=== PATIENT | male | born 2000 | race Caucasian/White ===

== ENCOUNTER 2022-12-27 10:33 | Emergency (ER) | payer BC, SELFPAY ==
--- NOTE | ~2022-12-27 | XR_ITS ---
EXAMINATION: XR foot RT min 3V DATE: 12/27/2022 11:25 INDICATION: Right ankle injury. Right foot pain. TECHNIQUE: 4 views of right foot were obtained. COMPARISON: None. FINDINGS: Bone alignment is normal. No fracture. Joint spaces are well maintained. IMPRESSION: 1. Normal right foot. Reviewed, dictated and finalized at location A. IMPRESSION: 1. Normal right foot.
--- NOTE | ~2022-12-27 | XR_ITS ---
EXAMINATION: XR ankle RT min 3V DATE: 12/27/2022 11:25 INDICATION: Right ankle injury and pain. TECHNIQUE: 4 views of right ankle were obtained. COMPARISON: Left tibia and fibula radiographs 01/07/2016 FINDINGS: Bone alignment is normal. There is an old healed fracture of fibular diaphysis. No acute fr acture. Joint spaces are normal. IMPRESSION: 1. No acute fracture. Reviewed, dictated and finalized at location A. IMPRESSION: 1. No acute fracture.
[2022-12-27 10:49] VITALS: BP 107/61; PULSE 72; RESP 16; TEMP 36.9; O2SAT 100
--- NOTE | 2022-12-27 11:16 | PC.NURSE ---
Patient off unit to radiology.
--- NOTE | 2022-12-27 12:14 | ED.LOWEXIN ---
HPI - Extremity Injury (Lower) General Chief Complaint: Extremity Injury, Lower Stated Complaint: right foot injury Time Seen by Provider: 12/27/22 10:56 Source: patient Mode of arrival: ambulatory Limitations: no limitations History of Present Illness HPI Narrative: Patient is a 22 y/o male who presents to the ED with his mother with report of R ankle and foot pain. Patient reports he was playing basketball last night when he went up for a lay up and came down and rolled his right ankle. Patient complains of pain to his right lateral ankle and right lateral mid foot. He has been able to ambulate, but has some pain with this. He has not taken anything for the pain. Denies any numbness or tingling. Related Data Home Medications Medication Instructions Recorded Confirmed No Home Medications 12/27/22 Allergies Allergy/AdvReac Type Severity Reaction Status Date / Time No Known Allergies Allergy Unverified 12/27/22 10:51 Review of Systems Review of Systems: CONSTITUTIONAL: Denies fever, chills, or sweats. MUSCULOSKELETAL: See HPI. NEUROLOGIC: Denies tingling, numbness, or weakness. All systems reviewed & are unremarkable except as noted in HPI and below PMFSH Past Medical History Medical History Fracture of olecranon process of right ulna [address] Bishop Tetralogy of Fallot [address] Yeager Toe fracture, left Social History Social History Smoking status: Never smoker Alcohol intake: current Alcohol use details: 4 drinks per month Gender identity (if verbalized by the patient): Male Exam Narrative: GENERAL: Well appearing, thin, non-toxic, in no acute distress. HEAD: Normocephalic, atraumatic. NECK: Supple. No adenopathy, no masses. RESPIRATORY: Airway patent, respirations nonlabored. CARDIOVASCULAR: Regular rate and rhythm without murmurs, rubs, or gallops. Pedal pulses 2+ and equal bilaterally. MUSCULOSKELETAL: Moves all extremities. Strength/ROM intact without gross deformities. Mild swelling noted to anterior lateral right ankle, in distribution of ATFL ligament. No significant tenderness to palpation over medial or lateral malleoli. No significant tenderness over fifth metatarsal. No ecchymosis. Sensation intact. SKIN: Warm, dry, normal color. No rashes. NEURO: A&O X3. Speech clear. Cranial nerves II-XII grossly intact. Steady gait. No ataxic movements. PSYCHIATRIC: Appropriate mood and affect. Normal interaction. Course Vital Signs Vital signs: Vital Signs Temperature 98.5 F 12/27/22 10:49 Pulse Rate 72 12/27/22 10:49 Respiratory Rate 16 12/27/22 10:49 Blood Pressure 107/61 12/27/22 10:49 Pulse Oximetry 100 12/27/22 10:49 Oxygen Delivery Room Air 12/27/22 10:49 Temperature 98.5 F 12/27/22 10:49 Pulse Rate 72 12/27/22 10:49 Respiratory Rate 16 12/27/22 10:49 Blood Pressure 107/61 12/27/22 10:49 Pulse Oximetry 100 12/27/22 10:49 Oxygen Delivery Room Air 12/27/22 10:49 MDM - Extremity Injury (Lower) MDM Narrative Medical decision making narrative: Patient's injury is consistent with musculoskeletal etiology. No gross deformities. No signs of neurologic or vascular compromise on physical examination. Compartments are soft without signs of compartment syndrome. XR of right ankle and foot without signs of fracture or dislocation. Pain is consistent with ankle sprain. Patient is felt to be stable for discharge home and further outpatient management and treatment. Will be provided with Rajesh bandage for support. Advised patient to take Tylenol and ibuprofen, follow-up with orthopedics if needed. Patient has seen Dr. Stein in the past and would like to follow-up with him. Return precautions given. Medical Records Attestation: I reviewed the patient's medical records. Imaging Data Attestation: I pers
[2022-12-27] MEDS: IBUPROFEN 600 MG TABLET PO (12:16)
== END 2022-12-27 12:34 | disposition home or self-care (01) ==
PROVIDERS: Emergency Provider Physician Assistant; PCP Family Medicine Sports Medicine
DX: S93.401A Sprain of unspecified ligament of right ankle, initial encounter (principal); X50.0XXA Overexertion from strenuous movement or load, initial encounter; Y93.67 Activity, basketball
CPT/HCPCS: 73610; 73630; 99283; A9270

== ENCOUNTER 2023-12-02 20:58 | Emergency (ER) | payer BC, SELFPAY ==
--- NOTE | ~2023-12-02 | XR_ITS ---
EXAMINATION: XR foot RT min 3V DATE: 12/02/2023 21:14 INDICATION: Right foot injury and pain. TECHNIQUE: 3 views of right foot were obtained. COMPARISON: Right foot radiographs 12/27/2022 FINDINGS: Bone alignment is normal. No acute fracture. Again seen is a chip of bone at the lateral as pect of distal cuboid. Joint spaces are normal. IMPRESSION: 1. No acute fracture. Reviewed, dictated and finalized at location E. IMPRESSION: 1. No acute fracture.
[2023-12-02 21:01] VITALS: BP 149/83; PULSE 99; RESP 16; TEMP 36.6; O2SAT 100
--- NOTE | 2023-12-02 21:07 | ED.LOWEXIN ---
HPI - Extremity Injury (Lower) General Chief Complaint: Extremity Injury, Lower Stated Complaint: running in the rain Time Seen by Provider: 12/02/23 21:04 Source: patient Mode of arrival: wheelchair Limitations: no limitations History of Present Illness HPI Narrative: 23-year-old with a history of osteogenesis imperfecta ahead with a complaint of a right foot pain. Patient states that he fell while running . In MD complaint: foot injury Onset (ago): minute(s) (30) Type of Injury: unknown Place: street/outdoors Severity: moderate Relieving factors: nothing Exacerbating factors: weight bearing and movement Context: running Other symptoms: none Related Data Home Medications Medication Instructions Recorded Confirmed No Home Medications 12/27/22 Allergies Allergy/AdvReac Type Severity Reaction Status Date / Time No Known Allergies Allergy Unverified 12/02/23 21:05 Review of Systems Review of Systems: All systems reviewed & are unremarkable except as noted in HPI and below Constitutional: Constitutional: Reports no additional constitutional complaints Eyes: Eyes: Reports no additional eye complaints ENT: Reports system reviewed and no additional complaints, except as documented Cardiovascular: Cardiovascular: Reports no additional cardiovascular complaints Respiratory: Respiratory: Reports no additional respiratory complaints Gastrointestinal: Gastrointestinal: Reports no additional gastrointestinal complaints Musculoskeletal: Musculoskeletal: Reports as per HPI Neurologic: Reports system reviewed and no additional complaints, except as documented PMFSH Past Medical History Medical History Fracture of olecranon process of right ulna [address] Bishop Tetralogy of Fallot [address] Yeager Toe fracture, left Social History Social History Smoking status: Never smoker Alcohol intake: current Alcohol use details: 4 drinks per month Gender identity (if verbalized by the patient): Male Exam Narrative: GENERAL: Well-appearing, well-nourished, and in no acute distress. HEAD: Normocephalic, atraumatic. EYES: PERRLA and EOMI. ENT: Nares clear, no rhinorrhea or epistaxis. Mucous membranes moist. NECK: Supple. CHEST: Clear to auscultation. No respiratory distress. HEART: Regular rate and rhythm. No murmur heard. Normal peripheral pulses. EXTREMITIES: Normal range of motion. No edema. Examination of the right foot shows no obvious deformity SKIN: Warm, dry, no rash. NEURO: No focal deficits. Alert and oriented x3. PSYCH: Normal mood and affect. Course Course Emergency Course: Notified patient a mild headache findings. Advised him to use crutches for ambulation, take pain medication as prescribed Vital Signs Vital signs: Vital Signs Temperature 36.6 C 12/02/23 21:01 Pulse Rate 99 12/02/23 21:01 Respiratory Rate 16 12/02/23 21:01 Blood Pressure 149/83 H 12/02/23 21:01 Pulse Oximetry 100 12/02/23 21:01 Oxygen Delivery Room Air 12/02/23 21:01 Temperature 36.6 C 12/02/23 21:01 Pulse Rate 99 12/02/23 21:01 Respiratory Rate 16 12/02/23 21:01 Blood Pressure 149/83 H 12/02/23 21:01 Pulse Oximetry 100 12/02/23 21:01 Oxygen Delivery Room Air 12/02/23 21:01 MDM - Extremity Injury (Lower) Imaging Data Radiologist's impression: ITS Impressions Foot X-Ray 12/02/23 21:14 IMPRESSION: 1. No acute fracture. Discharge Plan Discharge Clinical Impression: Foot sprain Patient Disposition: Home, Self-Care Condition: Stable Instructions: Antibiotic Form Prescriptions: No Action No Home Medications Follow-up/Referrals: Allyson,Neftaly Calderón MD [Primary Care Provider] - Time of Disposition: 21:25
[2023-12-02] MEDS: HYDROcodone/acetaminophen (*CRX) 5-325 MG TABLET 1 TAB PO (21:33)
[2023-12-02 21:37] VITALS: BP 142/92; PULSE 91; RESP 15; O2SAT 100
== END 2023-12-02 21:38 | disposition home or self-care (01) ==
PROVIDERS: Emergency Provider Family Medicine; PCP Family Medicine Sports Medicine
DX: S93.601A Unspecified sprain of right foot, initial encounter (principal); W18.30XA Fall on same level, unspecified, initial encounter
CPT/HCPCS: 73630; 99283; A9270